=== PATIENT | female | born 1980 | race Caucasian/White ===

== ENCOUNTER → 2021-08-14 | Outpatient (CLI) | payer OTHER ==
--- NOTE | 2021-08-14 23:56 | RAD ---
XR KNEE 3 VIEWS_RT 08/14/2021 6:26 PM INDICATION: Severe right knee pain, new onset COMPARISON: None available. TECHNIQUE: 3 views of the right knee are provided. FINDINGS/ IMPRESSION: Small knee joint effusion. There is no acute fracture or dislocation. Joint spaces are maintained. [place] ne mineralization is within normal limits. Regional soft tissues are within normal limits. There is n o soft tissue gas or osseous erosion. No radiopaque foreign body. Electronically signed by: Catrina Newell MD (08/14/2021 11:54 PM) [facility]
== END ==
LOC: RAD 18:19
PROVIDERS: ATTEND Nurse Practitioner Primary Care
DX: M25.461 Effusion, right knee (principal); M25.561 Pain in right knee
CPT/HCPCS: 73562

== ENCOUNTER → 2021-09-26 | Outpatient (CLI) | payer OTHER ==
--- NOTE | 2021-09-26 18:45 | RAD ---
XR PELVIS 1-2V DATE: 09/26/2021 6:13 PM INDICATION: PAIN COMPARISON: None. FINDINGS: Bones: There is no evidence of acute fracture or dislocation. Joints: The joint spaces are normal. Miscellaneous: None. IMPRESSION: No evidence of acute fracture. Electronically signed by: Chris Bright MD (09/26/2021 6:42 PM) [facility]
--- NOTE | 2021-09-26 18:45 | RAD ---
XR LUMBAR SPINE 2-3V DATE: 09/26/2021 6:13 PM INDICATION: PAIN COMPARISON: None. FINDINGS: Five non-rib bearing lumbar-type vertebral bodies are present. Bones/Alignment: No evidence of acute compression fracture. There is no listhesis. Joints: Mild degenerative disc disease. Miscellaneous: None. IMPRESSION: No evidence of acute compression fracture. Electronically signed by: Chris Bright MD (09/26/2021 6:43 PM) [facility]
== END ==
LOC: DXRAD 17:58
PROVIDERS: ATTEND Nurse Practitioner Primary Care
DX: M51.36 Other intervertebral disc degeneration, lumbar region (principal)
CPT/HCPCS: 72100; 72170